=== PATIENT | female | born 1965 | race Two or more races ===

== ENCOUNTER 2018-02-13 08:17 | Emergency (ER) | payer OTHER ==
[~2018-02-13] VITALS: Ht 162.6 cm; Wt 68.0 kg
[~2018-02-13 08:17] MED LIST: CORDARONE I.50 MG/ML PO; COUMADIN2.5 MG PO; FERROUS GL PO; METOPROLOL SUCC25 MG PO; SKELAXIN800 MG PO; TOPROL XL25 M1 PO; VASOTEC5 MG
== END 2018-02-13 14:04 | disposition home or self-care (01) ==
LOC: ER 08:17
DX: K80.20 Calculus of gallbladder without cholecystitis without obstruction (principal); D25.9 Leiomyoma of uterus, unspecified

== ENCOUNTER 2018-04-25 08:58 | Outpatient (CLI) | payer OTHER | END 2018-04-25 10:47 | disposition home or self-care (01) | LOC: NUCLEAR 08:58 | DX: K81.9 Cholecystitis, unspecified (principal); R10.11 Right upper quadrant pain | CPT/HCPCS: 78227; A9527 ==

== ENCOUNTER 2019-03-12 14:55 | Outpatient (CLI) | payer OTHER | END 2019-03-12 15:51 | disposition home or self-care (01) | LOC: SONOGRAMA 14:55 | DX: R10.84 Generalized abdominal pain (principal) ==

== ENCOUNTER 2019-03-12 15:38 | Emergency (ER) | payer OTHER ==
[~2019-03-12] VITALS: Ht 152.4 cm; Wt 69.9 kg
== END 2019-03-12 20:28 | disposition home or self-care (01) ==
LOC: ER 15:38
DX: K80.20 Calculus of gallbladder without cholecystitis without obstruction (principal)

== ENCOUNTER 2019-04-20 08:10 | Outpatient (CLI) | payer OTHER | END 2019-04-20 08:11 | disposition home or self-care (01) | LOC: RAD 08:10 | DX: R07.89 Other chest pain (principal) ==

== ENCOUNTER 2019-04-22 08:15 | Day surgery (SDC) | payer OTHER | END 2019-04-22 19:00 | disposition home or self-care (01) | LOC: CIR.AMB 08:15 | DX: K80.10 Calculus of gallbladder with chronic cholecystitis without obstruction (principal) ==

== ENCOUNTER 2019-05-28 09:58 | Outpatient (CLI) | payer OTHER | END 2019-05-28 09:59 | disposition home or self-care (01) | LOC: TOM 09:58 | DX: R10.84 Generalized abdominal pain (principal); R11.0 Nausea ==

== ENCOUNTER 2019-12-12 19:42 | Emergency (ER) | payer OTHER ==
[~2019-12-12] VITALS: Ht 162.6 cm; Wt 65.8 kg
[2019-12-12] MEDS ORDERED: LASIX20 MG (20:00)
== END 2019-12-12 21:47 | disposition home or self-care (01) ==
LOC: ER 19:42
DX: R10.13 Epigastric pain (principal)

== ENCOUNTER 2019-12-14 10:37 | Inpatient (IN) | payer OTHER ==
[~2019-12-14] VITALS: Ht 170.2 cm; Wt 67.6 kg
[~2019-12-14 10:37] MED LIST changes: +LASIX20 MG
[2019-12-14] MEDS ORDERED: PROTONIX40 MG (11:27)
[2019-12-17] MEDS ORDERED: XARELTO20 MG PO (12:37)
[2019-12-17] MEDS ORDERED: VASOTEC10 MG PO (12:37)
[2019-12-17] MEDS ORDERED: TOPROL XL50 M1 PO (12:37)
[2019-12-17] MEDS ORDERED: HYDRODIURIL12.5 MG PO (12:38)
== END 2019-12-17 18:01 | disposition home or self-care (01) | DRG 308 ==
LOC: ER 10:37 → SURH 18:52
PROVIDERS: ADMIT Internal Medicine; ATTEND Internal Medicine
PROC: B24BZZZ Ultrasonography of Heart with Aorta (ICD-10-PCS; principal; 2019-12-14)
PROC: 4A12X4Z Monitoring of Cardiac Electrical Activity, External Approach (ICD-10-PCS; 2019-12-15)
DX: I48.20 Chronic atrial fibrillation, unspecified (principal); Q22.5 Ebstein's anomaly; I50.9 Heart failure, unspecified; I11.9 Hypertensive heart disease without heart failure; Z79.01 Long term (current) use of anticoagulants

== ENCOUNTER → 2020-06-01 | Outpatient (CLI) | payer OTHER ==
[~2020-06-01] MED LIST changes: +HYDRODIURIL12.5 MG PO; +PROTONIX40 MG; +TOPROL XL50 M1 PO; +VASOTEC10 MG PO; +XARELTO20 MG PO
== END | disposition home or self-care (01) ==
LOC: RAD 11:02
PROVIDERS: ATTEND Specialist
DX: R05 Cough (principal); J45.998 Other asthma

== ENCOUNTER 2020-06-10 08:11 | Outpatient (CLI) | payer OTHER | END 2020-06-10 08:33 | disposition home or self-care (01) | LOC: NUCLEAR 08:11 | PROVIDERS: ATTEND Internal Medicine Cardiovascular Disease | DX: I07.1 Rheumatic tricuspid insufficiency (principal) ==

== ENCOUNTER 2020-08-07 17:14 | Emergency (ER) | payer OTHER ==
[~2020-08-07] VITALS: Ht 170.2 cm; Wt 62.6 kg
[2020-08-07] MEDS ORDERED: PEPCID AC20 MG PO (17:30)
== END 2020-08-07 22:06 | disposition home or self-care (01) ==
LOC: ER 17:14
DX: R10.13 Epigastric pain (principal)

== ENCOUNTER 2020-11-26 06:30 | Emergency (ER) | payer OTHER ==
[~2020-11-26] VITALS: Ht 170.2 cm; Wt 59.0 kg
[~2020-11-26 06:30] MED LIST changes: +PEPCID AC20 MG PO
[2020-11-26] MEDS ORDERED: PANTOPRAZOLE SO40 M2 (06:40)
[2020-11-26] MEDS ORDERED: KAPSPARGO SPRIN25 MG (06:40)
[2020-11-26] MEDS ORDERED: JANTOVEN5 MG (06:41)
[2020-11-26] MEDS ORDERED: TEMAZEPAM7.5 MG (06:41)
[2020-11-26] MEDS ORDERED: LASIX20 MG (06:42)
== END 2020-11-26 10:23 | disposition home or self-care (01) ==
LOC: ER 06:30
DX: M79.672 Pain in left foot (principal); M79.671 Pain in right foot

== ENCOUNTER 2021-10-08 19:01 | Emergency (ER) | payer OTHER ==
[~2021-10-08] VITALS: Ht 167.6 cm; Wt 68.0 kg
[~2021-10-08 19:01] MED LIST changes: +JANTOVEN5 MG; +KAPSPARGO SPRIN25 MG; +PANTOPRAZOLE SO40 M2; +TEMAZEPAM7.5 MG
== END 2021-10-08 22:13 | disposition left against medical advice (07) ==
LOC: ER 19:01
DX: Z53.21 Procedure and treatment not carried out due to patient leaving prior to being seen by health care provider (principal)